=== PATIENT | male | born 1965 | race African-American/Black ===

== ENCOUNTER 2018-10-03 06:08 | Emergency (ER) | payer MEDICAID ==
[~2018-10-03] VITALS: Ht 175.3 cm; Wt 82.0 kg
[2018-10-03] MEDS ORDERED: BACITRACIN ZINC OINT UDPKT TOP ONE (07:45)
[2018-10-03] MEDS ORDERED: LIDOCAINE HCL/EPINEPHRINE 1%-EPI 1:100,000 20 ML VIAL INFIL ONE (07:45)
[2018-10-03] MEDS ORDERED: TETANUS, DIPHTHERIA, PERTUSSIS VAC/PF 0.5ML (>7YR OLD) IM ONE (07:45)
[2018-10-03 08:47] VITALS: BP 131/81
== END 2018-10-03 09:03 | disposition home or self-care (01) ==
LOC: ER 06:08
DX: S01.511A Laceration without foreign body of lip, initial encounter (principal); F17.200 Nicotine dependence, unspecified, uncomplicated; X58.XXXA Exposure to other specified factors, initial encounter; Y93.89 Activity, other specified; Y92.89 Other specified places as the place of occurrence of the external cause; Y99.8 Other external cause status
CPT/HCPCS: 12011; 90471; 90715; 99283; A4217; J3490; Z7610

== ENCOUNTER 2018-10-16 17:32 | Emergency (ER) | payer MEDICAID ==
[~2018-10-16] VITALS: Ht 175.3 cm; Wt 79.0 kg
[2018-10-16 20:45] VITALS: BP 141/87
== END 2018-10-16 20:59 | disposition home or self-care (01) ==
LOC: ER 17:32
DX: Z48.02 Encounter for removal of sutures (principal)
CPT/HCPCS: 99281

== ENCOUNTER 2021-09-06 07:48 | Emergency (ER) | payer MEDICAID ==
[~2021-09-06] VITALS: Ht 175.3 cm; Wt 80.0 kg
[2021-09-06] MEDS ORDERED: LIDOCAINE HCL/EPINEPHRINE 1%-EPI 1:100,000 20 ML VIAL INFIL ONE (08:15)
[2021-09-06 10:17] VITALS: BP 139/82
== END 2021-09-06 10:18 | disposition home or self-care (01) ==
LOC: ER 07:48
DX: S01.01XA Laceration without foreign body of scalp, initial encounter (principal); W22.8XXA Striking against or struck by other objects, initial encounter; Y93.89 Activity, other specified; Y92.89 Other specified places as the place of occurrence of the external cause; Y99.8 Other external cause status
CPT/HCPCS: 12002; 99284

== ENCOUNTER 2021-09-22 09:49 | Emergency (ER) | payer MEDICAID, OTHER ==
[~2021-09-22] VITALS: Ht 175.3 cm; Wt 82.0 kg
[2021-09-22 10:15] VITALS: BP 154/77
== END 2021-09-22 11:09 | disposition home or self-care (01) ==
LOC: ER 09:49
DX: S01.01XD Laceration without foreign body of scalp, subsequent encounter (principal); Z48.02 Encounter for removal of sutures; X58.XXXD Exposure to other specified factors, subsequent encounter
CPT/HCPCS: 99281